=== PATIENT | female | born 1975 | race Caucasian/White ===

== ENCOUNTER 2024-06-08 11:02 | Day surgery (SDC) | payer MEDICARE ==
[2024-06-08] MEDS ORDERED: Sodium Chloride 0.9(Preservative Free) 10 ML IJ ONE (11:03)
[2024-06-08] MEDS ORDERED: Decadron 4 MG INJ IV ONE (11:03)
[2024-06-08] MEDS ORDERED: DIPRIVAN 200 MG/20 ML IV ONE (12:51)
[2024-06-08] MEDS ORDERED: MORPHINE SULFATE 2 MG INJ ONE (13:11)
--- NOTE | 2024-06-08 14:20 | XRAY ---
Indication: Right L4-S1 transforaminal MIRZA. Intraoperative fluoroscopy provided for 41 seconds. 5 digital spot image submitted for interpretation demonstrates posterior needle tips projecting over the expected right L4 and L5 nerve roots. Small amount of contrast injected for needle tip placement. Correlate with intraoperative findings/report.
--- NOTE | 2024-06-08 14:22 | XRAY ---
41 seconds of fluoroscopy was used in surgery for a right L4-S1 transforaminal MIRZA.
== END 2024-06-08 12:57 ==
LOC: SDC-PAIN 11:02
PROVIDERS: ATTEND Psychiatry & Neurology Pain Medicine
DX: M54.16 Radiculopathy, lumbar region (principal)
CPT/HCPCS: 36415; 64483; 64484; 72100; 77003; 85049; J1100; J2270; J2704; Q9966

== ENCOUNTER 2024-09-08 13:37 | Day surgery (SDC) | payer MEDICARE ==
[2024-09-08] MEDS ORDERED: LIDOCAINE HCL 2% 100 MG/5 ML IJ ONE (13:38)
[2024-09-08] MEDS ORDERED: Depo-Medrol 40 MG/ML IM ONE (13:38)
[2024-09-08] MEDS ORDERED: Lactated Ringers 500 ML IV ONE (14:04)
[2024-09-08] MEDS ORDERED: propofoL IV ONE (15:39)
--- NOTE | 2024-09-08 16:32 | XRAY ---
Indication: Bilateral L4-S1 MBB. Intraoperative fluoroscopy provided for 15 seconds. Single digital spot image submitted for interpretation demonstrates posterior needle tips projecting over expected left and right L4-S1 nerve roots. Correlate with intraoperative findings/report.
--- NOTE | 2024-09-08 16:38 | XRAY ---
15 seconds of fluoroscopy was used in surgery for a bilateral L4-S1 MBB.
== END 2024-09-08 16:07 | disposition home or self-care (01) ==
LOC: SDC-PAIN 13:37
PROVIDERS: ATTEND Psychiatry & Neurology Pain Medicine
DX: M47.816 Spondylosis without myelopathy or radiculopathy, lumbar region (principal); I10 Essential (primary) hypertension
CPT/HCPCS: 36415; 64493; 64494; 72020; 77002; 85049; J2704

== ENCOUNTER 2024-09-22 07:59 | Day surgery (SDC) | payer MEDICARE ==
[2024-09-22] MEDS ORDERED: methylPREDNISolone acetate IM ONE (08:00)
[2024-09-22] MEDS ORDERED: BUPIVACAINE 0.5% VIAL IJ ONE (08:00)
[2024-09-22] MEDS ORDERED: propofoL IV ONE (10:16)
--- NOTE | 2024-09-22 20:53 | XRAY ---
Indication: Bilateral L4-S1 MBB. Intraoperative fluoroscopy provided for 14 seconds. Single digital spot image submitted for interpretation demonstrates posterior needle tips projecting over expected left and right L4-S1 nerve roots. Correlate with intraoperative findings/report.
--- NOTE | 2024-09-22 21:51 | XRAY ---
14 seconds of fluoroscopy was used in surgery for a bilateral L4-S1 MBB.
== END 2024-09-22 10:47 | disposition home or self-care (01) ==
LOC: SDC-PAIN 07:59
PROVIDERS: ATTEND Psychiatry & Neurology Pain Medicine
DX: M47.816 Spondylosis without myelopathy or radiculopathy, lumbar region (principal)
CPT/HCPCS: 36415; 64493; 64494; 72020; 77002; 85049; J1010; J2704

== ENCOUNTER 2024-10-06 13:13 | Day surgery (SDC) | payer MEDICARE ==
[2024-10-06] MEDS ORDERED: methylPREDNISolone acetate IM ONE (13:14)
[2024-10-06] MEDS ORDERED: BUPIVACAINE 0.5% VIAL IJ ONE (13:14)
[2024-10-06] MEDS ORDERED: LIDOCAINE HCL 1% 50 MG/5 ML VL IJ ONE (13:14)
[2024-10-06] MEDS ORDERED: Lactated Ringers 500 ML IV ONE (14:12)
[2024-10-06] MEDS ORDERED: propofoL IV ONE ×2 (15:03→15:22)
--- NOTE | 2024-10-06 16:38 | XRAY ---
Indication: Left L4-S1 RFA. Intraoperative fluoroscopy provided for 23 seconds. 4 digital spot images submitted for interpretation demonstrates posterior needle tips projecting over expected left L4-S1 nerve roots. Correlate with intraoperative findings/report.
--- NOTE | 2024-10-06 16:40 | XRAY ---
23 seconds of fluoroscopy was used in surgery for a left L4-S1 RFA.
== END 2024-10-06 15:50 | disposition home or self-care (01) ==
LOC: SDC-PAIN 13:13
PROVIDERS: ATTEND Psychiatry & Neurology Pain Medicine
DX: M47.817 Spondylosis without myelopathy or radiculopathy, lumbosacral region (principal); I10 Essential (primary) hypertension
CPT/HCPCS: 36415; 64635; 64636; 72100; 77002; 85049; J1010; J2704

== ENCOUNTER 2024-10-12 12:11 | Day surgery (SDC) | payer MEDICARE ==
[2024-10-12] MEDS ORDERED: Depo-Medrol 40 MG/ML IM ONE (12:12)
[2024-10-12] MEDS ORDERED: BUPIVACAINE 0.5% VIAL IJ ONE (12:12)
[2024-10-12] MEDS ORDERED: LIDOCAINE HCL 1% AMPUL 5 ML IJ ONE (12:12)
[2024-10-12] MEDS ORDERED: Lactated Ringers 500 ML IV ONE (12:33)
[2024-10-12] MEDS ORDERED: propofoL IV ONE (14:13)
--- NOTE | 2024-10-12 16:29 | XRAY ---
Indication: Right L4-S1 RFA. Intraoperative fluoroscopy provided for 18 seconds. 4 digital spot image submitted for interpretation demonstrates posterior needle tips projecting over expected right L4-S1 nerve roots. Correlate with intraoperative findings/report.
--- NOTE | 2024-10-12 17:09 | XRAY ---
18 seconds of fluoroscopy was used in surgery for a right L4-S1 RFA.
== END 2024-10-12 14:45 | disposition home or self-care (01) ==
LOC: SDC-PAIN 12:11
PROVIDERS: ATTEND Psychiatry & Neurology Pain Medicine
DX: M47.816 Spondylosis without myelopathy or radiculopathy, lumbar region (principal)
CPT/HCPCS: 64635; 64636; 72100; 77002; J2704

== ENCOUNTER 2024-12-01 09:52 | Day surgery (SDC) | payer MEDICARE ==
[2024-12-01] MEDS ORDERED: BUPIVACAINE 0.5% VIAL IJ ONE (09:53)
[2024-12-01] MEDS ORDERED: methylPREDNISolone acetate IM ONE (09:53)
[2024-12-01] MEDS ORDERED: propofoL IV ONE (12:17)
[2024-12-01] MEDS ORDERED: Versed 2 MG/2 ML Injection ONE (12:22)
--- NOTE | 2024-12-01 13:21 | XRAY ---
Indication: Bilateral SI joint injection. Intraoperative fluoroscopy for right for 16 seconds. 2 digital spot image submitted for interpretation demonstrates posterior needle tips projecting over expected left and right SI joints. Small amount of contrast injected for needle tip placement. Correlate with intraoperative findings/report.
--- NOTE | 2024-12-01 13:23 | XRAY ---
16 seconds of fluoroscopy were used in surgery for bilateral sacroiliac joint injections.
== END 2024-12-01 12:45 | disposition home or self-care (01) ==
LOC: SDC-PAIN 09:52
PROVIDERS: ATTEND Psychiatry & Neurology Pain Medicine
DX: M46.1 Sacroiliitis, not elsewhere classified (principal)
CPT/HCPCS: 27096; 36415; 72202; 85049; J1010; J2250; J2704; Q9966